=== PATIENT | female | born 1985 | race Caucasian/White ===

== ENCOUNTER 2020-02-26 12:25 | Inpatient (IN) | payer OTHER ==
[~2020-02-26] VITALS: Ht 154 cm; Wt 61.2 kg
[2020-02-26] MEDS ORDERED: RINGERS SOLUTION,LACTATED 1,000 ML IV PRN (12:45)
[2020-02-26] MEDS ORDERED: LIDOCAINE/PF 1% 30 ML VIAL INJ PRN (12:45)
[2020-02-26] MEDS ORDERED: OXYTOCIN 30 UNITS/LACT RINGERS 500 ML IV ONE (12:45)
[2020-02-26] MEDS ORDERED: METOCLOPRAMIDE HCL 5 MG/ML 2 ML VIAL IVP PRN (12:45)
[2020-02-26] MEDS ORDERED: CITRIC ACID/SODIUM CITRATE 30 ML SOLUTION UDCUP PO PRN (12:45)
[2020-02-26] MEDS ORDERED: FentaNYL CITRATE-PF 100 MCG/2 ML VIAL IVP PRN (12:45)
[2020-02-26 13:05] VITALS: BP 103/67
[2020-02-26 13:30] LABS: BASOPHILS % (AUTO) 0.2 % (0.0-2.0); EOSINOPHILS % (AUTO) 0.4 % (1.0-6.0); HEMATOCRIT 36.9 % (36-46); HEMOGLOBIN 12.9 g/dL (12.0-16.0); LYMPHOCYTES # (AUTO) 1.3 K/uL (1.0-4.8); LYMPHOCYTES % (AUTO) 22.6 % (22.0-44.0); MEAN CORPUSCULAR HEMOGLOBIN 33.9 pg (26.0-34.0); MEAN CORPUSCULAR VOLUME 97 fL (80-100); MONOCYTES # (AUTO) 0.4 K/uL (0.1-1.0); MONOCYTES % (AUTO) 7.1 % (2.0-9.0); NEUTROPHILS # (AUTO) 4.1 K/uL (1.8-7.7); NEUTROPHILS % (AUTO) 69.7 % (40.0-70.0); PLATELET COUNT (AUTO)-OB 195 K/uL (150-450); RED BLOOD CELL COUNT(AUTO) 3.81 MIL/uL (4.00-5.20); RED CELL DISTRIBUTION WIDTH 13.9 % (11.5-14.5)
[2020-02-26] MEDS: RINGERS SOLUTION,LACTATED 1,000 ML IV SCH ×2 (13:32→17:27)
[2020-02-26] MEDS ORDERED: INFLUENZA VIRUS VACCINE QVS 2020-21 (6MO+)/PF 60 MCG/0.5 ML SYRINGE IM ONE (13:45)
[2020-02-26 14:05] LABS: COVID AG,FIA SOURCE NASOPHARYNGEAL
[2020-02-26] MEDS ORDERED: OXYTOCIN 30 UNITS/LACT RINGERS 500 ML IV PRN (14:15)
[2020-02-26] MEDS ORDERED: ROPIVACAINE HCL/PF 0.2% 100 ML ED ONE (15:19)
[2020-02-26] MEDS ORDERED: DiphenhydrAMINE HCL 50 MG/ML VIAL IVP PRN (15:45)
[2020-02-26] MEDS ORDERED: ONDANSETRON HCL 4 MG/2 ML VIAL IVP PRN (15:45)
[2020-02-26] MEDS ORDERED: ROPIVACAINE HCL/PF 0.2% 100 ML ED PRN (15:45)
[2020-02-26] MEDS ORDERED: NALBUPHINE HCL 10 MG/ML VIAL IVP PRN (15:45)
[2020-02-26] MEDS ORDERED: OXYGEN THERAPY IH SCH (20:00)
[2020-02-26] MEDS ORDERED: BENZOCAINE 20%/MENTHOL 56 GM SPRAY CANISTER TP PRN (23:45)
[2020-02-26] MEDS ORDERED: OxyCODONE HCL/ACETAMINOPHEN 5-325 MG TABLET PO PRN ×2 (23:45)
[2020-02-26] MEDS ORDERED: RINGERS SOLUTION,LACTATED 1,000 ML IV ONE (23:45)
[2020-02-26] MEDS ORDERED: GLYCERIN/WITCH HAZEL LEAF 40 PADS JAR TP PRN (23:45)
[2020-02-26] MEDS ORDERED: MEASLES/MUMPS/RUBELLA VACCINE, LIVE 0.5 ML/VIAL SQ ONE (23:45)
[2020-02-26] MEDS ORDERED: LANOLIN 7 GM OINTMENT TP PRN (23:45)
[2020-02-27] MEDS: IBUPROFEN 600 MG TABLET PO PRN ×2 (02:11→17:01)
[2020-02-27] MEDS: MAGNESIUM HYDROXIDE SUSPENSION 30 ML UDCUP PO SCH (21:48)
[2020-02-28] MEDS: MAGNESIUM HYDROXIDE SUSPENSION 30 ML UDCUP PO SCH (08:01)
[2020-02-28] MEDS: IBUPROFEN 600 MG TABLET PO PRN (08:02)
[2020-02-28] MEDS ORDERED: IBUP-2071 PO (09:50)
[2020-02-28] MEDS ORDERED: FERR-89 PO (09:51)
[2020-02-28] MEDS ORDERED: DOCU-275 PO (09:51)
== END 2020-02-28 11:20 | disposition home or self-care (01) | DRG 807 ==
LOC: INTOOBSV 12:25 → UNDOADMOB 12:25 → OBSVTOIN 12:25 → 4S 12:25 → OBSVTOIN 12:26 → UNDODISIN 13:40
PROVIDERS: ADMIT Obstetrics & Gynecology; ATTEND Obstetrics & Gynecology
PROC: 10E0XZZ Delivery of Products of Conception, External Approach (ICD-10-PCS; principal; 2020-02-26)
PROC: 0KQM0ZZ Repair Perineum Muscle, Open Approach (ICD-10-PCS; 2020-02-26)
PROC: 3E0S3BZ Introduction of Anesthetic Agent into Epidural Space, Percutaneous Approach (ICD-10-PCS; 2020-02-26)
PROC: 00HU33Z Insertion of Infusion Device into Spinal Canal, Percutaneous Approach (ICD-10-PCS; 2020-02-26)
DX: O70.1 Second degree perineal laceration during delivery (principal); Z37.0 Single live birth; Z3A.39 39 weeks gestation of pregnancy; Z20.828 Contact with and (suspected) exposure to other viral communicable diseases
CPT/HCPCS: 86850; 86900; 86901; 87426; 90686; J2590; J2795; J7120